=== PATIENT | female | born 1945 | race Caucasian/White ===

== ENCOUNTER 2019-10-04 14:21 | Emergency (ER) | payer MEDICARE ==
[2019-10-04] MEDS ORDERED: HYDROmorphone 0.5 MG/0.5 ML SYRINGE IVP STA (14:37)
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
[2019-10-04 15:30] VITALS: RESP 18
[2019-10-04 15:36] LABS: Basophils # (A) 0.1 k/uL (0-0.2); Basophils % (A) 1 %; Eosinophils # (A) 0.1 k/uL (0-0.7); Eosinophils % (A) 1 %; HCT 45.1 % (34.0-46.0); HGB 15.1 gm/dL (11.4-16.0); Lymphocytes # (A) 1.2 k/uL (1.0-4.8); Lymphocytes % (A) 12 %; MCH 32.3 pg (25.0-35.0); MCHC 33.4 g/dL (31.0-37.0); MCV 96.6 fL (80.0-100.0); Monocytes # (A) 0.3 k/uL (0-1.0); Monocytes % (A) 4 %; Neutrophils # (A) 7.8 k/uL (1.3-7.7); Neutrophils % (A) 81 %; Platelet Count 188 k/uL (150-450); RBC 4.67 m/uL (3.80-5.40); RDW 12.5 % (11.5-15.5); WBC 9.6 k/uL (3.8-10.6)
--- NOTE | 2019-10-04 15:45 | XR ---
EXAMINATION TYPE: XR chest 1V portable DATE OF EXAM: 10/04/2019 COMPARISON: NONE HISTORY: Pain TECHNIQUE: Single frontal view of the chest is obtained. FINDINGS: There is no focal air space opacity, pleural effusion, or pneumothorax seen. The cardiac silhouette size is within normal limits. The osseous structures are intact. Atherosclerotic change aorta. No overt failure. IMPRESSION: No acute process.
[2019-10-04 15:51] LABS: ALT 15 U/L (4-34); AST 33 U/L (14-36); African American GFR (CKD) >90 (>60 ml/min/1.73 sqM); Albumin 4.1 g/dL (3.5-5.0); Alcohol <10 mg/dL; Alkaline Phosphatase 60 U/L (38-126); Anion Gap 6 mmol/L; Blood Urea Nitrogen 21 mg/dL (7-17); Calcium 9.4 mg/dL (8.4-10.2); Carbon Dioxide 27 mmol/L (22-30); Chloride 108 mmol/L (98-107); Glucose 87 mg/dL (74-99); Non-African American GFR(CKD) >90 (>60 ml/min/1.73 sqM); Sodium 141 mmol/L (137-145); Total Bilirubin 0.5 mg/dL (0.2-1.3); Total Protein 7.3 g/dL (6.3-8.2)
[2019-10-04 15:55] LABS: Potassium 4.8 mmol/L (3.5-5.1)
[2019-10-04 16:01] LABS: Amorphous Sediment,Urine Many /hpf; Appearance,Urine Turbid (Clear); Bilirubin,Urine Negative (Negative); Blood,Urine Negative (Negative); Color,Urine Yellow; Glucose,Urine (UA) Negative (Negative); Ketones,Urine Negative (Negative); Leukocyte Esterase,Urine Negative (Negative); Nitrite,Urine Negative (Negative); PH, Urine 7.5 (5.0-8.0); Protein,Urine Trace (Negative); Specific Gravity,Urine 1.018 (1.001-1.035); Squamous Epithelial Cell,Urine 3 /hpf (0-4); Urobilinogen,Urine <2.0 mg/dL (<2.0); WBC,Urine 1 /hpf (0-5)
[2019-10-04 16:02] LABS: INR 0.9 (<1.2); Prothrombin Time 9.8 sec (9.0-12.0)
[2019-10-04 16:11] LABS: Partial Thromboplastin Time 21.7 sec (22.0-30.0)
[2019-10-04 16:16] LABS: Amphetamine Screen,Urine Not Detected (NotDetected); Barbiturate Screen,Urine Not Detected (NotDetected); Benzodiazepines Screen,Urine Not Detected (NotDetected); Cocaine Screen,Urine Not Detected (NotDetected); Methadone Screen, Urine Not Detected (NotDetected); Opiate Screen,Urine Not Detected (NotDetected); Oxycodone Screen, Urine Not Detected (NotDetected); Phencyclidine Screen,Urine Not Detected (NotDetected); Tricyclic Antidepressant,Urine Not Detected (NotDetected); Urn Cannabinoid Scrn Not Detected (NotDetected)
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
[2019-10-04 17:10] VITALS: BP 185/91; PULSE 82; TEMP 97.8
== END 2019-10-04 17:29 | disposition home or self-care (01) ==
LOC: EC 14:21
DX: S20.219A Contusion of unspecified front wall of thorax, initial encounter (principal); I71.4 Abdominal aortic aneurysm, without rupture; I71.2 Thoracic aortic aneurysm, without rupture; I10 Essential (primary) hypertension; F17.200 Nicotine dependence, unspecified, uncomplicated; V89.2XXA Person injured in unspecified motor-vehicle accident, traffic, initial encounter; Y92.89 Other specified places as the place of occurrence of the external cause
CPT/HCPCS: 36415; 93005; 86900; 86901; 80053; 84484; 85025; 85610; 85730; 86850; 81001; 80306; 71045; 71260; 74177; 99284; 96374; G0480; J1170; Q9967; 80320

== ENCOUNTER → 2019-11-16 | Outpatient (CLI) | payer MEDICARE ==
--- NOTE | 2019-11-18 13:30 | MM ---
Reason for exam: screening (asymptomatic). Last mammogram was performed 13 years and 9 months ago. History: Patient is postmenopausal. Family history of premenopausal breast cancer in sister and breast cancer in relative. Benign stereotactic core biopsy of the left breast, July 01, 2002. 2 cyst aspirations of the left breast. Core biopsy of the left breast. Physical Findings: A clinical breast exam by your physician is recommended on an annual basis and results should be correlated with mammographic findings. MG 3D Screening Mammo W/Cad Bilateral CC and MLO view(s) were taken. Prior study comparison: February 06, 2006, bilateral screening mammogram w/CAD. January 21, 2005, bilateral screening mammogram. The breast tissue is heterogeneously dense. This may lower the sensitivity of mammography. Previous mammotome biopsy in the left breast. New central posterior grouped microcalcifications right breast. Adjacent nodular asymmetry on right CC may be at the skin. Three new groups of microcalcifications left posterior upper outer quadrant. ASSESSMENT: Incomplete: need additional imaging evaluation, BI-RAD 0 RECOMMENDATION: Special view mammogram of both breasts. If lesion persists on supplemental views, image directed ultrasound is recommended. [facility] will attempt to contact patient to return for supplemental views and ultrasound if indicated.
== END | disposition home or self-care (01) ==
LOC: RADMAMWWP 12:55
PROVIDERS: ATTEND Family Medicine
DX: Z12.31 Encounter for screening mammogram for malignant neoplasm of breast (principal)
CPT/HCPCS: 77063; 77067

== ENCOUNTER → 2019-12-02 | Outpatient (CLI) | payer MEDICARE ==
--- NOTE | 2019-12-02 12:29 | MM ---
Reason for exam: additional evaluation requested from abnormal screening. Last mammogram was performed 1 month ago. History: Patient is postmenopausal. Family history of premenopausal breast cancer in sister and breast cancer in relative. Benign stereotactic core biopsy of the left breast, July 01, 2002. 2 cyst aspirations of the left breast. Core biopsy of the left breast. Physical Findings: Nurse did not find any significant physical abnormalities on exam. MG 3D Work Up W/Cad DIMA Bilateral CC with magnification, LM with magnification, and LM view(s) were taken. CCRL view(s) were taken of the right breast. Prior study comparison: February 06, 2006, bilateral screening mammogram w/CAD. The breast tissue is heterogeneously dense. This may lower the sensitivity of mammography. There are new bilateral calcifications. New 1.3cm lower inner quadrant posterior depth calcifications are heterogeneous. Left 3 groups of calcifications are also heterogeneous. The first is 6mm in the central outer left breast at middle depth, the second is a 5mm upper outer quadrant middle depth on the left, the third is 4mm upper outer quadrant. Right medial posterior depth asymmetry corresponds to a mole. These results were verbally communicated with the patient and result sheet given to the patient on 12/02/19. ASSESSMENT: Suspicious, BI-RAD 4 RECOMMENDATION: Stereotactic core biopsy of both breasts. Most suspicious groups bilaterally (2 sites) Called Dr. Skinner's office with mammographic findings and has scheduled an appointment for the patient for 01/27/20 at 11:[address] Calderón. Biopsy scheduled for 02/02/20 at 8:00. PRELIMINARY REPORT CALLED AND FAXED TO DR. CALDERÓN ON 12/02/19.
== END | disposition home or self-care (01) ==
LOC: RADMAMWWP 10:34
PROVIDERS: ATTEND Family Medicine
DX: R92.8 Other abnormal and inconclusive findings on diagnostic imaging of breast (principal)
CPT/HCPCS: 77066; G0279; 77062

== ENCOUNTER → 2020-01-27 | Outpatient (CLI) | payer MEDICARE ==
[2020-01-27 11:37] VITALS: BP 116/78; PULSE 65; RESP 16; TEMP 98
--- NOTE | 2020-01-27 11:58 | P.GSHP ---
History of Present Illness H&P Date: 01/27/20 Chief Complaint: abnormal mammogram of the breast bilateral The patient is a 74-year-old white female seen in consultation for Dr. Skinner, she had a bilateral mammogram performed on . Her last mammogram prior to this was approximately 2005. She was noted to have bilateral calcifications. There are 3 groups in the left breast and one group in the right breast which are particularly suspicious. The radiographs were reviewed with Dr. Garcia from radiology. He is recommended that the right breast stereotactic core.by to be done initially with the cc from below approach. He was then recommended that 2 areas at least be sampled on the left with a lateral to medial approach. She does not complain of any lumps masses or nodules in her breasts. She is not complaining of any nipple discharge or skin changes. She is not complaining of any trauma or infection in her breast. She had a left breast biopsy for down in 2005 and this was not cancer. It was done in about 2005 and was benign. She drinks abut 2/3 cups of coffee/day. She drinks pop with caffeine also. She used to smoke approximately half a pack per day of cigarettes but stopped in November. She smoked for about 50 years. She is not exposed to second hand smoke. She does not eat chocolate on a regular basis. She does not take any hormone supplements. Family history: sister: breast and bone cancer at about 40 mother: rectal cancer brother: bone cancer Hormonal history: menarche: 10 M1, breast fed: yes, age at first : 17 menopause: 48 BCP: <1 year hormones: < 2 years Surgical History: 1. left wrist/carpal tunnel 2. eyes bilateral cataract Medical History: 1. HTN 2. high cholesterol Social History: smoke: stopped in November alcohol: none drugs: none - Constitutional Constitutional: Denies chills, Denies fever - EENT Eyes: bilateral blurred vision (macular degenertion), denies pain Ears: deny: decreased hearing, tinnitus Ears, nose, mouth and throat: Denies headache, Denies sore throat - Breasts Breasts: bilateral: as per HPI - Cardiovascular Cardiovascular: Reports high blood pressure - Respiratory Respiratory: Denies cough, Denies 7 - Gastrointestinal Gastrointestinal: Denies abdominal pain, Denies diarrhea, Denies nausea, Denies vomiting - Genitourinary (Female) Genitourinary: Denies dysuria, Denies hematuria - Menstruation Menstruation: Reports postmenopausal - Musculoskeletal Comment: arthritis - Integumentary Integumentary: Denies pruritus, Denies rash - Neurological Neurological: Reports numbness, Denies weakness - Psychiatric Psychiatric: Denies anxiety, Denies depression - Endocrine Endocrine: Reports weight change, Denies fatigue - Hematologic/Lymphatic Comment: none - Allergic/Immunologic Allergic/Immunologic: Reports as per HPI Past Medical History Past Medical History: No Reported History History of Any Multi-Drug Resistant Organisms: None Reported Past Surgical History: No Surgical Hx Reported Smoking Status: Former smoker Medications and Allergies Home Medications Medication Instructions Recorded Confirmed Type amLODIPine [Norvasc] 5 mg PO DAILY #30 tab 10/04/19 01/25/20 Rx Allergies Allergy/AdvReac Type Severity Reaction Status Date / Time No Known Allergies Allergy Verified 01/27/20 11:22 Surgical - Exam BMI 24.2 - General well developed, well nourished, no distress - Eyes normal ocular movement - ENT no hearing loss, no congestion - Neck no masses, trachea midline - Respiratory normal expansion, normal respiratory effort, clear to auscultation - Cardiovascular Rhythm: regular Heart Sounds: normal: S1, S2 - Abdomen Abdomen: soft, non tender, no guarding, no rigid, no rebound - Integumentary normal turgor - Neurologic no disoriented, no combative - Musculoskeletal normal gait, normal posture - Psychiatric oriented to time, oriented to person, oriented to place, speech is normal, memory intact breast exam: BRA 44B inspection: bilateral grade 3 ptosis Palpation: Right breast: Multi-positional exam fibrocystic changes no dominant masses or nodules of concern Right axilla: No adenopathy of concern Left breast: Multi-positional exam fibrocystic changes, increased fullness minimal lower inner quadrant area no dominant discrete mass Left axilla: No adenopathy of concern No supraclavicular adenopathy of concern on either side Results Mammograms reviewed with Dr. Myers from radiology Assessment and Plan Assessment: Impression: 1. Abnormal bilateral mammogram/3 sites in the left breast, one site in the right breast 2. Fibrocystic breast changes 3. Hypertension Plan: 1. Bilateral stereotactic core biopsy. Recommend biopsy of right breast initially this would be a CC from below approach, 3 lesions on the left to more suspicious and these would be a lateral to medial approach on the left. This and benefits of the procedure discussed with the patient and her son. Alternatives which would be watchful waiting versus open biopsy in the operating room I discussed but not recommended. She wishes to have this scheduled for the near future this will be scheduled. This concluded but are not limited to bleeding, infection, inability to access the correct lesion. She understands and wishes to proceed. Additional risk in this covid-19 time would be exposure to the virus however all precautions will be taken she understands and wishes to proceed. CC: Charlene Juares encounter 45 minutes, > 50% of time in planning and counselling Time with Patient: Greater than 30
== END | disposition home or self-care (01) ==
LOC: WWCWWP 10:57
PROVIDERS: ATTEND Surgery
DX: Z53.9 Procedure and treatment not carried out, unspecified reason (principal)

== ENCOUNTER → 2020-01-31 | Outpatient (CLI) | payer MEDICARE | END | disposition home or self-care (01) | LOC: LABWHC1 13:14 | PROVIDERS: ATTEND Surgery | DX: Z11.59 Encounter for screening for other viral diseases (principal) | CPT/HCPCS: 87635 ==

== ENCOUNTER → 2020-02-02 | Day surgery (SDC) | payer MEDICARE ==
[2020-02-02 07:23] VITALS: RESP 16; TEMP 98.2
--- NOTE | 2020-02-02 10:16 | P.PCN ---
Date of Procedure: 02/02/20 Preoperative Diagnosis: Bilateral mammographic abnormalities/1 lesion right breast, 3 lesions left breast Postoperative Diagnosis: Same Procedure(s) Performed: Attempted right breast stereotactic core biopsy canceled secondary to lesion being in close proximity to vessel, lung lesion sampled left breast Anesthesia: local Surgeon: Seema Calderón IV fluids (ml): 1 Pathology: other (Breast tissue) Condition: stable Disposition: same day Indications for Procedure: Mammographic abnormality of microcalcifications left breast Operative Findings: Microcalcifications from left breast biopsy noted in the biopsy specimen Description of Procedure: Xi is a 74-year-old white female who on a routine mammogram was noted to have an area of microcalcifications of concern in the right breast, and 3 areas in the left breast. The patient was recommended to undergo biopsy of the area in the right breast as well as the most suspicious area in the left breast and possibly the other 3 areas. The right breast was approached initially. The risks and benefits of the procedure were discussed with the patient as well as the alternatives. Alternatives would include watchful waiting (biopsy in the operating room. The patient agreed to go to a stereotactic core biopsy. The patient was brought to the stereotactic core biopsy wound. She was positioned prone on the biopsy table. A film was obtained of the right breast in the area of concern was identified. The patient was noted to be in proximity to a vessel. With the radiologist/Dr. Alvarado felt that the breast could not be approached in another fashion and this lesion could not be safely sampled via stereotactic biopsy. Therefore needle localization and excision in the operating room was recommended for the right breast. The left breast was then approached. The area of greatest suspicion was approached from a lateral to medial approach however the lesion could not be well seen in the CC from below approach was ultimately utilized. The area of concern was targeted. The skin was prepped using Betadine. 15 mL of 1% lidocaine 5 of which had epinephrine were utilized. A 19-gauge vacuum-assisted core rotating biopsy needle was driven to the correct coordinates and fired. Post-fire films revealed that the needle was not in the correct location and the needle was moved to a more negative exposition. Again a repeat radiograph revealed that the needle was not in the correct location. Therefore the needle was withdrawn and the lesion was retargeted. At this time 20 mL of 1% lidocaine 10 of which had epinephrine was utilized for the localization. The breast was again prepped using Betadine. The needle was driven to the correct coordinates after the lesion was targeted and post-fire films were obtained. The needle appeared to be in the correct location. 13 core biopsy samples were obtained. Radiograph of the specimen revealed that the microcalcifications had been adequately sampled. A circular jessie top Marker was placed. The patient tolerated the procedure in stable condition. The specimen was sent for pathology. Review with the radiologist revealed that there were 3 other lesions A total of 4 lesions of concern in the left breast. Because we had already used approximately 30 mL of 1% lidocaine was felt that we could not sample second area at this time. Impression/plan: 1. Radiographic abnormality right breast not conducive to stereotactic core biopsy secondary to vasculature in the area 2. Left breast radiographic abnormality 4 lesions one which was sampled, depending on results of this further recommendation to follow 3. If this is benign would recommend stereo biopsy of the other 3 areas of concern if this is malignant and patient wishes a mastectomy would not need to sample the other areas stereotactically 4. Follow-up in 1 week CC: Dr. Joelle Skinner; Charlene Amaya
[2020-02-02 10:25] VITALS: BP 169/82; PULSE 66
--- NOTE | 2020-02-02 11:03 | MM ---
EXAMINATION TYPE: MG stereo VAD BX LT DATE OF EXAM: 02/02/2020 COMPARISON: NONE CLINICAL HISTORY: Abnormal mammogram TECHNIQUE: Stereotactic guided core biopsy of bilateral breasts. FINDINGS: Best approach was chosen for right breast. The calcifications within the right breast appear to be adjacent to vascular structures at the same level. Due to the risks involved, in discussion with the surgeon, this was deferred to open biopsy. Best approach was chosen for the left breast calcifications. Targeting was provided by radiology. The procedure was performed by surgery. Multiple core samples were obtained. Calcifications are grouped within a sample. Clip was placed and postprocedure mammogram was obtained. The patient is been resected clip is in the expected region. Case was discussed with the referring surgeon. The biopsy results will be evaluated. Additional stereotactic core samples of the 3 sites within this left breast can be performed. Right breast open biopsy is currently awaiting pathology results of the left breast findings. IMPRESSION: 1. Successful core biopsy left breast calcifications. 2. Stereotactic core biopsy not performed on the right breast due to vasculature. This will be rescheduled for open biopsy. Recommendations: 1. Pathology pending. 2. Open biopsy right breast calcifications. 3. Decision on 3 additional groups of calcifications within the left breast for stereotactic core biopsy can be considered following initial pathology results and patient requests. Pathology Results: Benign LEFT BREAST, STEREOTACTIC CORE BIOPSY: Fibrocystic changes including fibroadenomatoid hyperplasia with calcifications, fibrosis, cysts and sclerosing adenosis. Recommendation Follow up mammogram of the left breast in 6 months. BANDARD
--- NOTE | 2020-02-02 11:04 | MM ---
EXAMINATION TYPE: MG stereo VAD BX LT DATE OF EXAM: 02/02/2020 COMPARISON: NONE CLINICAL HISTORY: Abnormal mammogram TECHNIQUE: Stereotactic guided core biopsy of bilateral breasts. FINDINGS: Best approach was chosen for right breast. The calcifications within the right breast appear to be a djacent to vascular structures at the same level. Due to the risks involved, in discussion with the s urgeon, this was deferred to open biopsy. Best approach was chosen for the left breast calcifications. Targeting was provided by radiology. The procedure was performed by surgery. Multiple core samples were obtained. Calcifications are grouped within a sample. Clip was placed and postprocedure mammogram was obtained. The patient is been resected clip is in the expected region. Case was discussed with the referring surgeon. The biopsy results will be evaluated. Additional stere otactic core samples of the 3 sites within this left breast can be performed. Right breast open biops y is currently awaiting pathology results of the left breast findings. IMPRESSION: 1. Successful core biopsy left breast calcifications. 2. Stereotactic core biopsy not performed on the right breast due to vasculature. This will be resche duled for open biopsy. Recommendations: 1. Pathology pending. 2. Open biopsy right breast calcifications. 3. Decision on 3 additional groups of calcifications within the left breast for stereotactic core bio psy can be considered following initial pathology results and patient requests.
== END ==
LOC: RADMAMWWP 07:04
PROVIDERS: ATTEND Surgery
DX: N60.12 Diffuse cystic mastopathy of left breast (principal); R92.1 Mammographic calcification found on diagnostic imaging of breast; N60.22 Fibroadenosis of left breast; R92.8 Other abnormal and inconclusive findings on diagnostic imaging of breast; Z53.8 Procedure and treatment not carried out for other reasons
CPT/HCPCS: 19082; 88305; 19081; A4648; J2001

== ENCOUNTER → 2020-02-09 | Outpatient (CLI) | payer MEDICARE ==
[2020-02-09 13:46] VITALS: BP 121/76; PULSE 48; RESP 16; TEMP 98.2
--- NOTE | 2020-02-09 14:09 | P.PN ---
Subjective Progress Note Date: 02/09/20 Principal diagnosis: Stereotactic biopsy left breast results Xi is a 74-year-old white female status post [place] [id number]. Pathology was benign and calcifications were present in the specimen. An attempt at a right breast stereo biopsy was made on the same day and this was canceled secondary to vascularity of the area of the lesion. Today in review of her films with Dr. Kang from radiology is felt that the sampling on the left is product representative of the other calcifications. Therefore the option of a six-month bilateral mammogram is given to the patient. We discussed that I cannot tell her with certainty what the other areas are however at this time she wishes to wait and have repeat bilateral mammogram in 6 months. He and her son understand that if there is any change that would be recommending biopsy in 6 months. The patient tolerated the procedure with no difficulty. Objective - Vital Signs Vital signs: Vital Signs Temp 98.2 F 02/09/20 13:35 Pulse 48 L 02/09/20 13:35 Resp 16 02/09/20 13:35 BP 121/76 02/09/20 13:35 Pulse Ox 98 02/09/20 13:35 Intake & Output 02/08/20 02/09/20 02/09/20 18:59 06:59 18:59 Weight 63.049 kg - Exam BMI 24.6 - Constitutional General appearance: Present: average body habitus - EENT Eyes: Present: EOMI ENT: Present: hearing grossly normal - Neck Neck: Present: normal ROM - Respiratory Respiratory: bilateral: CTA - Cardiovascular Rhythm: regular Heart sounds: normal: S1, S2 - Integumentary Integumentary Comment(s): left bresat mild echymosis at biopsy site, no hematoma no infection Integumentary: Present: normal turgor - Musculoskeletal Musculoskeletal: Present: gait normal - Psychiatric Psychiatric: Present: A&O x's 3, appropriate affect, intact judgment & insight Assessment and Plan Assessment: Impression/Plan: 1. Left breast biopsy site clean and dry mild ecchymosis 2. Pathology from core biopsy benign 3. Additional sites in the left breast as well as the right breast site appeared to be similar to that area which was biopsied, this is been reviewed with Dr. Kang and the patient is given the option of following up in 6 months versus open biopsy of the right breast and additional biopsies of the areas in the left breast The patient wishes to wait for 6 months. She understands that we may recommend biopsy at that time. She understands I cannot guarantee that there is no cancer without further biopsy or intervention however the areas appear to be similar to that which was probed biopsied and benign. CC: DR. Brody Amaya PA encounter 15 minutes > 50% of time in planning and counselling Time with Patient: Less than 30
== END | disposition home or self-care (01) ==
LOC: WWCWWP 13:26
PROVIDERS: ATTEND Surgery
DX: Z53.9 Procedure and treatment not carried out, unspecified reason (principal)

== ENCOUNTER → 2020-04-20 | Outpatient (CLI) | payer MEDICARE ==
[2020-04-20 13:04] LABS: African American GFR (CKD) >90 (>60 ml/min/1.73 sqM); Blood Urea Nitrogen 14 mg/dL (7-17); Non-African American GFR(CKD) >90 (>60 ml/min/1.73 sqM)
--- NOTE | 2020-04-20 14:21 | CT ---
EXAMINATION TYPE: CT angio thor/abd pel aorta DATE OF EXAM: 04/20/2020 COMPARISON: CT April 03, 2020 HISTORY: AAA with thoracic pain. CT DLP: 605 mGycm. Automated Exposure Control for Dose Reduction was Utilized. CONTRAST: CTA scan of the thorax, abdomen and pelvis is performed with IV Contrast, patient injected with 100 m L of Isovue 370. Three-D reconstructed images are created on an independent workstation and reviewed. FINDINGS: VASCULAR: Satisfactory enhancement of the pulmonary arteries. Stable prominent right and left pulmona ry arteries. Findings suggestive of underlying pulmonary artery hypertension. Ascending aorta measures up to 3.7 cm in diameter image 25. Normal 3 vessel origin from the aortic ar ch. Moderate mixed plaque in the aortic arch. Redemonstration of focal aneurysm of the distal thoracic aorta measuring up to 4.5 cm axial image 42 with some curvilinear noncalcified plaque anteriorly redemonstrated. There is patent celiac artery, SMA, and bilateral single renal arteries. There is gradual tapering in to the upper abdominal aorta. There is then some ectasia of the infrarenal abdominal aorta with AAA m easuring 4.2 x 3.9 cm axially image 71. Significant peripheral noncalcified plaque or intramural thro mbus redemonstrated. Aneurysmal extends the level of the iliac bifurcation measuring roughly 8 cm in length. Mild to moderate calcified plaque in the iliac vessels which are patent. Slightly more prominent plaq ue in the right internal iliac artery which shows significant narrowing. Femoral vessels in the right groin show mild to moderate plaque without significant stenosis. PREET is likely occluded. LUNGS: Background mild to moderate underlying emphysematous change There is no pleural effusion or pn eumothorax seen bilaterally. No concerning nodules or masses. The tracheobronchial tree is patent. MEDIASTINUM: There are no greater than 1 cm hilar or mediastinal lymph nodes. No cardiomegaly or pe ricardial effusion is seen. Coronary artery calcification is redemonstrated. LIVER/GB: Dependent intraluminal gallstone redemonstrated. PANCREAS: No significant abnormality is seen. SPLEEN: No significant abnormality is seen. ADRENALS: No significant abnormality is seen. KIDNEYS: Occasional simple appearing thin-walled cysts in both kidneys are redemonstrated. BOWEL: Scattered colonic diverticula greatest at level of sigmoid colon without CT evidence for acute diverticulitis . GENITAL ORGANS: Anteverted lobulated uterus extending to left of midline similar to prior. LYMPH NODES: No greater than 1cm abdominal or pelvic lymph nodes are appreciated. OSSEOUS STRUCTURES: Moderate disc space narrowing and spurring L2-L3 level. Moderate axial joint spac e loss in both hips. OTHER: No significant additional abnormality is seen. IMPRESSION: Stable distal descending thoracic aortic aneurysm which I measure up to 4.5 cm in diamete r and 4.7 cm abdominal aortic aneurysm over roughly 8 cm in length.
== END | disposition home or self-care (01) ==
LOC: RADCTMAIN 12:24
PROVIDERS: ATTEND Surgery
DX: I71.4 Abdominal aortic aneurysm, without rupture (principal); I71.2 Thoracic aortic aneurysm, without rupture
CPT/HCPCS: 82565; 84520; 71275; 36415; 74174; Q9967

== ENCOUNTER → 2020-08-06 | Outpatient (CLI) | payer MEDICARE ==
--- NOTE | 2020-08-06 11:07 | MM ---
Reason for exam: follow-up at short interval from prior study. Last mammogram was performed 8 months ago. History: Patient is postmenopausal. Family history of premenopausal breast cancer in sister at age 40 and breast cancer in maternal aunt. Benign MG stereo VAD BX LT of the left breast, February 02, 2020. MG discontinued stereo core RT of the right breast, February 02, 2020. Benign stereotactic core biopsy of the left breast, July 01, 2002. 2 cyst aspirations of the left breast. Core biopsy of the left breast. Physical Findings: A clinical breast exam by your physician is recommended on an annual basis and results should be correlated with mammographic findings. MG 3D Diag Mammo W/Cad DIMA Bilateral CC and MLO view(s) were taken. Prior study comparison: December 02, 2019, bilateral MG 3d work up w/cad DIMA. November 16, 2019, bilateral MG 3d screening mammo w/cad. There are scattered fibroglandular densities. Finding: There are grouped/clustered calcifications in both breasts. Previous mammotome biopsy in the left breast x 2. No significant changes in finding since December 02, 2019 and November 16, 2019. These results were verbally communicated with the patient and result sheet given to the patient on 08/06/20. ASSESSMENT: Benign, BI-RAD 2 RECOMMENDATION: Routine screening mammogram of both breasts in 1 year.
== END | disposition home or self-care (01) ==
LOC: RADMAMWWP 08:37
PROVIDERS: ATTEND Surgery
DX: R92.8 Other abnormal and inconclusive findings on diagnostic imaging of breast (principal)
CPT/HCPCS: 77066; G0279; 77062

== ENCOUNTER → 2020-10-26 | Outpatient (CLI) | payer MEDICARE ==
[2020-10-26 08:54] LABS: African American GFR (CKD) >90 (>60 ml/min/1.73 sqM); Blood Urea Nitrogen 18 mg/dL (7-17); Non-African American GFR(CKD) 89 (>60 ml/min/1.73 sqM)
--- NOTE | 2020-10-26 15:56 | CT ---
EXAMINATION TYPE: CT angio thor/abd pel aorta DATE OF EXAM: 10/26/2020 INDICATION: Abdominal aortic aneurysm COMPARISON: 04/20/2020 CT DLP: 752 mGycm CONTRAST: Performed without Oral Contrast and with IV Contrast, patient injected with 100 mL of Isovue 370. TECHNIQUE: Axial images at 5 mm thick sections. Reconstructed images in the coronal plane. Delayed images through the kidneys. FINDINGS: CT CHEST: Portion of the thyroid visualized is normal. There is a hypodensity within the inferior left lobe thyroid. Subglottic airway appears normal. Note is made of a 1.0 cm left axillary lymph node. No enlarged mediastinal or hilar adenopathy is srinivasa dent. The ascending aorta diameter at the level of the main pulmonary artery is 2.7 cm. The main pulmonary artery diameter at the bifurcation is 2.[address] ABDOMEN: Liver: Normal Spleen: Normal Pancreas: Normal Adrenal glands: The adrenal glands are normal. Gallbladder: Gallstone is present Kidneys: No masses are evident. No hydronephrosis is present. No cysts are present. Delayed images were obtained through the kidneys, which remain unremarkable. Aorta: Vascular calcification is within the aorta. Ascending thoracic aorta at the aortic root measures 3.2 cm. The aorta at the main pulmonary artery i s 3.7 cm. The aorta at the aortic arch transverse dimension 2.8 cm There is some aneurysmal dilatation of the descending thoracic aorta within the mid to distal portion with the transverse dimension of 4.5 cm. This measures approximately 3.0 cm the global diaphragm. Ce liac axis and superior mesenteric arteries appear normal. 2 renal arteries are identified. There is aneurysmal dilatation of the mid abdominal aorta with an AP diameter 4.1 cm. Flow lumen is s maller. This terminates bifurcation. Common iliac arteries internal and external iliac arteries and c ommon femoral arteries are patent to the inguinal regions. Inferior vena cava: Normal. CT PELVIS: Loops of bowel within the abdomen and pelvis are normal. The study is done without oral contrast limiting bowel evaluation. Diverticular changes are within the sigmoid colon. Appendix: Not visualized. No suspicious inflammatory changes or enlarged tubular structures are evide nt Urinary bladder: Normal. Genitourinary structures: Uterus is normal. Adnexal regions are clear. Osseous structures: No suspicious lytic or sclerotic lesions. IMPRESSIONS: 1. Aneurysmal dilatation of the mid abdominal aorta terminating at the bifurcation with an AP diamete r 4.1 cm. 2. Aneurysmal dilatation of the distal descending thoracic aorta with a transverse dimension of 4.5 c m. 3. Dilatation of the ascending thoracic aorta at the level the main pulmonary artery is 3.7 cm. 4. Cholelithiasis. 5. Diverticulosis without acute diverticulitis.
== END | disposition home or self-care (01) ==
LOC: RADCTMAIN 08:13
PROVIDERS: ATTEND Surgery
DX: K80.20 Calculus of gallbladder without cholecystitis without obstruction (principal); I71.2 Thoracic aortic aneurysm, without rupture; K57.90 Diverticulosis of intestine, part unspecified, without perforation or abscess without bleeding
CPT/HCPCS: 82565; 84520; 71275; 36415; 74174; Q9967

== ENCOUNTER → 2021-04-30 | Outpatient (CLI) | payer MEDICARE ==
[2021-04-30 11:25] LABS: African American GFR (CKD) >90 (>60 ml/min/1.73 sqM); Blood Urea Nitrogen 13 mg/dL (7-17); Non-African American GFR(CKD) 89 (>60 ml/min/1.73 sqM)
--- NOTE | 2021-04-30 13:35 | CT ---
EXAMINATION TYPE: CT angio thor/abd pel aorta DATE OF EXAM: 04/30/2021 COMPARISON: 10/26/2020 HISTORY: 76-year-old female I71.2, thoracic aortic aneurysm without rupture. TECHNIQUE: Contiguous axial scanning of the chest, abdomen, and pelvis performed with IV Contrast, pa tient injected with 100 mL of Isovue 370. Coronal/sagittal MIP reconstructions performed. 3-D reconst ructions generated on a dedicated independent workstation. CT DLP: 1385 mGycm Automated exposure control for dose reduction was used. FINDINGS: CHEST: 7 mm hypodense nodularity left adrenal gland is unchanged. Heart normal size without pericardial effusion. Mild proximal LAD coronary artery calcifications are present. Borderline to mildly enlarged caliber to the main right and left pulmonary arteries measurin g up to 2.5 cm. This may reflect underlying pulmonary hypertension. 9 mm left axillary lymph node is unchanged. No new or enlarging mediastinal or hilar lymphadenopathy. Strandy areas of atelectasis. Mild centrilobular emphysema. Calcified granuloma anterior right mid bart ng. No consolidation or pleural effusion. VASCULATURE: Aortic root borderline ectatic at 3.5 mm, unchanged. Ascending aorta is borderline ectatic at 3.5 cm, unchanged. Mild atherosclerotic arch calcifications with conventional branching anatomy. Upper descending thoracic aorta mildly ectatic at 3.2 cm, unchanged. Middescending thoracic aorta is mildly aneurysmal at 3.0 cm, unchanged. Fusiform aneurysm distal descending thoracic aorta measuring up to 4.5 cm, unchanged. Crescentic mura l based plaque and thrombus is present. The aorta at the thoracoabdominal junction is aneurysmal at 3.3 cm, unchanged. Mild atherosclerotic narrowing at the origin of the celiac axis. The SMA is patent. Patent escobedo renal arteries. Fusiform infrarenal AAA extending approximately 7.6 cm down to the aortic bifurcation. Aneurysm measures up to 4.8 x 4.3 cm versus 4.6 x 4.2 cm, previously. Crescentic in circumferential plaque and thrombus narrows the lumen down to 2.1 cm. Mild atherosclerotic calcifications within the iliac arteries. ABDOMEN: Small hiatal hernia. Stable 1.2 cm cyst segment 2 left liver lobe. Gallstones measuring up to 1.9 cm redemonstrated. No abnormal gallbladder distention. No biliary duct al dilatation. Adrenal glands and pancreas show no gross abnormal body. A couple calcified granulomas within the spl een Suspect a cortical cyst anterior lower pole left kidney measuring 8 mm. Larger 2.0 cm cyst medial rig ht kidney. No dilated small bowel, free fluid, or free air. No mesenteric or retroperitoneal lymphadenopathy. Normal appendix. Mild stool burden. Sigmoid diverticulosis. No pericolonic inflammatory change. PELVIS: Bladder nondistended. Lobulated, anteverted uterus, suspect underlying fibroid change. Pelvic phlebol iths. Bladder nondistended. No abnormal fluid collection in the pelvis or pelvic lymphadenopathy. Mil d pelvic floor relaxation. BONES: Mild degenerative change of the hips. Hypertrophic facet arthropathy mid to lower lumbar spine. Moder ate to advanced degenerative disc disease L2-L3. There is a reverse S-shaped curvature along the uppe r to mid thoracic spine. IMPRESSION: 1. STABLE ECTASIA OF THE THORACIC AORTA WITH FUSIFORM ANEURYSM OF THE DISTAL DESCENDING THORACIC AORT A AT 4.5 CM, ALSO STABLE. 2. ABDOMINAL AORTIC ANEURYSM AT THE THORACOABDOMINAL JUNCTION STABLE AT 3.3 CM. 3. FUSIFORM INFRARENAL AAA SPANNING 7.6 CM MINIMALLY LARGER AT 4.8 X 4.3 CM (VERSUS 4.6 X 4.2 CM, PRE VIOUSLY). CIRCUMFERENTIAL PLAQUE AND THROMBUS NARROWS THE LUMEN HERE DOWN TO 2.1 CM. 4. INCIDENTAL: COPD WITH MILD EMPHYSEMA, PRIOR GRANULOMATOUS DISEASE, SMALL HIATAL HERNIA, CHOLELITH IASIS, AND SIGMOID DIVERTICULOSIS.
== END | disposition home or self-care (01) ==
LOC: RADCTMAIN 10:47
PROVIDERS: ATTEND Surgery
DX: I71.6 Thoracoabdominal aortic aneurysm, without rupture (principal); J43.9 Emphysema, unspecified; J84.10 Pulmonary fibrosis, unspecified; K44.9 Diaphragmatic hernia without obstruction or gangrene; K80.20 Calculus of gallbladder without cholecystitis without obstruction; K57.30 Diverticulosis of large intestine without perforation or abscess without bleeding
CPT/HCPCS: 82565; 84520; 71275; 36415; 74174; Q9967

== ENCOUNTER → 2021-08-07 | Outpatient (CLI) | payer MEDICARE ==
--- NOTE | 2021-08-12 11:01 | MM ---
Reason for exam: screening (asymptomatic). Last mammogram was performed 1 year ago. History: Patient is postmenopausal. Family history of premenopausal breast cancer in sister at age 40 and breast cancer in maternal aunt. Benign MG stereo VAD BX LT of the left breast, February 02, 2020. MG discontinued stereo core RT of the right breast, February 02, 2020. Benign stereotactic core biopsy of the left breast, July 01, 2002. 2 cyst aspirations of the left breast. Core biopsy of the left breast. Physical Findings: A clinical breast exam by your physician is recommended on an annual basis and results should be correlated with mammographic findings. MG 3D Screening Mammo W/Cad Bilateral CC and MLO view(s) were taken. Prior study comparison: August 06, 2020, bilateral MG 3d diag mammo w/cad DIMA. December 02, 2019, bilateral MG 3d work up w/cad DIMA. The breast tissue is heterogeneously dense. This may lower the sensitivity of mammography. Previous mammotome biopsy in the left breast x 2. Mole inferior right breast. Stable grouped calcifications bilaterally. No significant changes when compared with prior studies. ASSESSMENT: Benign, BI-RAD 2 RECOMMENDATION: Routine screening mammogram of both breasts in 1 year.
== END | disposition home or self-care (01) ==
LOC: RADMAMWWP 09:50
PROVIDERS: ATTEND Family Medicine
DX: Z12.31 Encounter for screening mammogram for malignant neoplasm of breast (principal); Z80.3 Family history of malignant neoplasm of breast; Z78.0 Asymptomatic menopausal state
CPT/HCPCS: 77063; 77067

== ENCOUNTER → 2021-11-04 | Outpatient (CLI) | payer MEDICARE ==
[2021-11-04 13:23] LABS: African American GFR (CKD) >90 (>60 ml/min/1.73 sqM); Blood Urea Nitrogen 24 mg/dL (7-17); Non-African American GFR(CKD) 79 (>60 ml/min/1.73 sqM)
--- NOTE | 2021-11-04 20:22 | CT ---
EXAMINATION TYPE: CT angio thor/abd pel aorta DATE OF EXAM: 11/04/2021 INDICATION: Aneurysm. CT DLP: 2123 mGy.cm Automated Exposure Control for Dose Reduction was Utilized. TECHNIQUE AND CONTRAST: CT scan of the chest, abdomen and the pelvis is performed without and with IV Contrast, patient injec barb with 100 mL of Isovue 370. MIP and 3-D reconstruction images were performed. COMPARISON: CT dated 04/30/2021 FINDINGS: Scattered arterial atherosclerotic calcification. Slightly larger fusiform aneurysm at the inferior a spect of the descending thoracic aorta measuring 4.7 cm compared to 4.5 cm previously. Stable periphe ral atheromatous plaque without evidence of dissection. Slightly larger infrarenal abdominal aortic aneurysm measuring up to 5 cm compared to 4.8 cm previous ly. Persistent atheromatous plaque within the aortic aneurysm with patent lumen measuring 22 mm, stab le. No extension of the aneurysm into the common iliac arteries. Severe stenosis of the origin of the celiac trunk yet patent distally. Unchanged remainder of the tho racic and abdominal aorta without evidence of new aneurysmal dilatation or dissection. Coronary arter ial atherosclerotic calcifications. Dilated pulmonary artery measuring up to 3 cm which may suggest p ulmonary hypertension. No gross cardiomegaly. Mild centrilobular emphysematous changes mainly seen in the upper lung lobes. Stable tiny calcified granuloma in the middle lobe. No new or progressive lung lesion. No pleural or pericardial effusion. No progressive lymphadenopathy in the chest. Unchanged liver, spleen, pancreas, adrenals and kidneys. Cholelithiasis without evidence of acute cho lecystitis. The urinary bladder is not distended. Lobular outline of the uterus, possibly due to unde rlying fibroids. Left ovarian/adnexal cyst measuring 16mm, stable. No gross right adnexal mass. Unremarkable nondistended stomach, duodenum and small bowel. Extensive colonic diverticulosis most ev ident involving the sigmoid colon and the inferior aspect of the descending colon. No suspicious abdo aydee or pelvic lymphadenopathy or sizable ascites. Persistent degenerative changes at L2-3 level. No aggressive bone lesion. IMPRESSION: Slightly larger fusiform aneurysm at the inferior aspect of the descending thoracic aorta as well as the infrarenal abdominal aortic aneurysm as detailed above. No evidence of aortic dissection or peria ortic hematoma. Other interval changes and incidental findings as described above.
== END | disposition home or self-care (01) ==
LOC: RADCTMAIN 12:20
PROVIDERS: ATTEND Surgery
DX: I71.4 Abdominal aortic aneurysm, without rupture (principal); I71.2 Thoracic aortic aneurysm, without rupture; K57.30 Diverticulosis of large intestine without perforation or abscess without bleeding; I25.10 Atherosclerotic heart disease of native coronary artery without angina pectoris; J43.2 Centrilobular emphysema; J84.10 Pulmonary fibrosis, unspecified; K80.20 Calculus of gallbladder without cholecystitis without obstruction; N83.202 Unspecified ovarian cyst, left side
CPT/HCPCS: 82565; 84520; 71275; 36415; 74174; Q9967

== ENCOUNTER → 2022-05-20 | Outpatient (CLI) | payer MEDICARE ==
[2022-05-20 11:29] LABS: African American GFR (CKD) >90 (>60 ml/min/1.73 sqM); Blood Urea Nitrogen 13 mg/dL (7-17); Non-African American GFR(CKD) 86 (>60 ml/min/1.73 sqM)
--- NOTE | 2022-05-23 09:56 | CT ---
EXAMINATION TYPE: CT angio thor/abd pel aorta DATE OF EXAM: 05/21/2022 COMPARISON: 11/04/2021 HISTORY: Abdominal aortic aneurysm CONTRAST: CTA thoracic and abdominal aorta with 3-D reconstruction is performed without Oral Contrast and witho ut and with IV Contrast, patient injected with 100 mL of Isovue 300. Contrast CTA of the thoracic and abdominal aorta was performed from the lung apex through the base of the pelvis. 3-D reconstruction imaging obtained at a separate workstation. CT Chest: THORACIC AORTA: Ascending thoracic aorta measures approximately 3.8 cm in AP dimension. Proximal desc ending thoracic aorta measures 3.1 cm. The distal portion of the descending thoracic aorta is again n oted to be aneurysmal and measures 5.3 cm AP dimension versus 5.3 cm previously. Mural thrombus is no barb. LUNGS: The lungs are clear and free of infiltrate or atelectasis. No pulmonary nodule or mass is det ected. No pleural effusion or CT evidence of interstitial lung disease. MEDIASTINUM: The heart is not enlarged. No evidence for mediastinal mass or adenopathy. HILAR STRUCTURES: No evidence for mass. No hilar adenopathy is appreciated. OTHER: No significant abnormality. CONTRAST CT ABDOMEN AND PELVIS ABDOMINAL AORTA: Mid abdominal aortic aneurysm at the level of the renal arteries measuring 3.3 cm. D istal abdominal aortic aneurysm measuring 4.7 cm AP dimension by 7.7 cm in length. Patent lumen measu res 2.2 cm. Iliac vessels are ectatic however nonaneurysmal. LIVER/GB-there is evidence of cholelithiasis. PANCREAS- No significant abnormality is seen. SPLEEN- No significant abnormality is seen. ADRENALS- No significant abnormality is seen. KIDNEYS/BLADDER- No significant abnormality is seen. BOWEL- No Significant abnormality GENITAL ORGANS: Left ovarian focal calcification in the hypoattenuating lesion measuring 2.3 cm. Cons ider ultrasound correlation. Uterine focal calcification may reflect calcified leiomyoma. No evidence for right adnexal mass. LYMPH NODES- No greater than 1cm abdominal or pelvic lymph nodes areappreciated. OSSEOUS STRUCTURES- No significant abnormality is seen. OTHER- No significant abnormality is seen. IMPRESSION- 1. Thoracic and abdominal aortic aneurysms as discussed. 2. Consider ultrasound for left ovarian lesion.
== END | disposition home or self-care (01) ==
LOC: RADCTMAIN 10:40
PROVIDERS: ATTEND Surgery
DX: I71.4 Abdominal aortic aneurysm, without rupture (principal)
CPT/HCPCS: 36415; 71275; 74174; 82565; 84520

== ENCOUNTER → 2022-08-26 | Outpatient (CLI) | payer MEDICARE ==
--- NOTE | 2022-08-27 12:03 | MM ---
Reason for Exam: Screening (asymptomatic). Last mammogram was performed 1 year(s) and 1 month(s) ago. Patient History: Menarche at age 10. First Full-Term at age 17. Postmenopausal. Cyst Aspiration on the Left side. Cyst Aspiration on the Left side. Core Biopsy on the Left side. 02/02/2020, Benign Core Biopsy on the left side. 07/01/2002, Benign Stereotactic Core Biopsy on the left side. 02/02/2020, MG discontinued stereo core RT on the right side. Maternal aunt had breast cancer. Sister had breast cancer, age 40. Risk Values: Adrienne 5 year model risk: 4.7%. NCI Lifetime model risk: 7.7%. Prior Study Comparison: 12/02/2019 Bilateral Diagnostic Mammogram, [facility]. 08/06/2020 Bilateral Diagnostic Mammogram, [facility]. 08/07/2021 Bilateral Screening Mammogram, [facility]. Tissue Density: The breast tissue is heterogeneously dense. This may lower the sensitivity of mammography. Findings: Analyzed By CAD. There are scattered and loosely grouped benign-appearing round calcifications redemonstrated throughout the bilateral breasts. There are 2 biopsy clips in the left breast redemonstrated. Benign-appearing bilateral axillary lymph nodes are again seen. There is no suspicious group of microcalcifications or new suspicious mass in either breast. Overall Assessment: Benign, BI-RAD 2 Management: Screening Mammogram of both breasts in 1 year. A clinical breast exam by your physician is recommended on an annual basis and results should be correlated with mammographic findings. Electronically signed and approved by: Ang Myers M.D.
== END | disposition home or self-care (01) ==
LOC: RADMAMWWP 10:43
PROVIDERS: ATTEND Family Medicine
DX: Z12.31 Encounter for screening mammogram for malignant neoplasm of breast (principal); Z78.0 Asymptomatic menopausal state; Z80.3 Family history of malignant neoplasm of breast
CPT/HCPCS: 77067

== ENCOUNTER → 2022-12-03 | Outpatient (CLI) | payer MEDICARE ==
[2022-12-03 11:19] LABS: African American GFR (CKD) >90 (>60 ml/min/1.73 sqM); Blood Urea Nitrogen 15 mg/dL (7-17); Non-African American GFR(CKD) 90 (>60 ml/min/1.73 sqM)
--- NOTE | 2022-12-03 13:34 | CT ---
EXAMINATION TYPE: CT angio thor/abd pel aorta DATE OF EXAM: 12/03/2022 COMPARISON: 05/20/2022 HISTORY: Follow up for thoracic and abdominal aneurysm. CT DLP: 1445 mGycm CONTRAST: CTA thoracic and abdominal aorta with 3-D reconstruction is performed and without and with IV Contras t, patient injected with 100ml mL of Isovue 370. Contrast CTA of the thoracic and abdominal aorta was performed from the lung apex through the base of the pelvis. 3-D reconstruction imaging obtained at a separate workstation. CT Chest: THORACIC AORTA: There is ectasia of the ascending thoracic aorta without aneurysmal dilatation mechelle l AP dimension of 3.8 cm. Aortic arch is unremarkable. There is a distal lead ascending thoracic aort ic aneurysm redemonstrated at 5.3m with mural thrombus. LUNGS: The lungs are clear and free of infiltrate or atelectasis. No pulmonary nodule or mass is det ected. No pleural effusion or CT evidence of interstitial lung disease. MEDIASTINUM: The heart is not enlarged. No evidence for mediastinal mass or adenopathy. HILAR STRUCTURES: No evidence for mass. No hilar adenopathy is appreciated. OTHER: No significant abnormality. CONTRAST CT ABDOMEN AND PELVIS ABDOMINAL AORTA: Again noted is infrarenal abdominal aortic aneurysm with maximal AP dimension of 4.8 cm versus 4.7 cm previously. There is no extension into the iliac vessels. Major branch vessels are patent. LIVER/GB-gallstone is redemonstrated. PANCREAS- No significant abnormality is seen. SPLEEN- No significant abnormality is seen. ADRENALS- No significant abnormality is seen. KIDNEYS/BLADDER-right renal cysts noted. BOWEL- No Significant abnormality GENITAL ORGANS: Left ovarian lesion is stable. LYMPH NODES- No greater than 1cm abdominal or pelvic lymph nodes are appreciated. OSSEOUS STRUCTURES- No significant abnormality is seen. OTHER- No significant abnormality is seen. IMPRESSION- 1. Essentially stable thoracic and abdominal aortic aneurysms.
== END | disposition home or self-care (01) ==
LOC: RADCTMAIN 09:44
PROVIDERS: ATTEND Surgery
DX: I71.40 Abdominal aortic aneurysm, without rupture, unspecified (principal); I71.20 Thoracic aortic aneurysm, without rupture, unspecified
CPT/HCPCS: 82565; 84520; 71275; 36415; 74174; Q9967

== ENCOUNTER → 2023-07-03 | Outpatient (CLI) | payer MEDICARE ==
[2023-07-03 12:53] LABS: African American GFR (CKD) >90 (>60 ml/min/1.73 sqM); Blood Urea Nitrogen 17 mg/dL (7-17); Non-African American GFR(CKD) >90 (>60 ml/min/1.73 sqM)
--- NOTE | 2023-07-03 16:41 | CT ---
EXAMINATION TYPE: CT angio thor/abd pel aorta without and with contrast DATE OF EXAM: 07/03/2023 COMPARISON: 12/03/2022 HISTORY: 78-year-old female I71.43, I71.2, f/u anuerysm TECHNIQUE: Contiguous axial scanning of the chest, abdomen, and pelvis performed without and with IV Contrast, patient injected with 100 mL of Isovue 370. Coronal/sagittal MIP reconstructions performed. 3-D reconstructions generated on a dedicated independent workstation. CT DLP: 1332.4 mGycm Automated exposure control for dose reduction was used. FINDINGS: Chest: Heart normal size without pericardial effusion. No thoracic lymph adenopathy by CT size criteria. A few calcified right hilar lymph nodes suggest seq uela of prior granulomatous disease. Large caliber to the main right and left pulmonary arteries measuring up to 2.8 cm suggesting underly ing pulmonary hypertension. There is moderate centrilobular emphysema. Unchanged 4 mm right upper lobe pulmonary nodule. Calcifie d granuloma right midlung. Strandy atelectasis or scarring as well as mild fibrosis in the lower lung s. 4 mm subpleural pulmonary nodule posterolateral left base not well seen previously. ABDOMEN: Left liver lobe cyst measuring 1.7 cm. A couple gallstones measuring 1.9 and 1.6 cm. No abnormal gall bladder distention. Adrenal glands, spleen, and pancreas show no gross abnormality. Suggestion of parapelvic cysts in the kidneys. Dominant 2.3 cm cortical cyst medial right kidney. No dilated small bowel, free fluid, or free air. No mesenteric or retroperitoneal lymphadenopathy. Normal appendix. Extensive sigmoid diverticulosis. No pericolonic inflammatory change. PELVIS: Bladder partially distended. Pelvic phleboliths. Uterus is anteverted. 1.8 cm cyst of the left ovary remains unchanged. This can be followed by ultrasound on an annual basis. Right ovary not clearly del ineated from adjacent bowel loops. No abnormal fluid collection in the pelvis or pelvic lymphadenopat hy. BONES: Advanced degenerative disc disease and endplate spondylosis L2-L3. VASCULATURE: Ascending aorta normal caliber. Upper descending thoracic aorta normal caliber. Mid descending thoracic aorta stable ectatic and 3.2 cm. Fusiform aneurysm lower descending thoracic aorta measuring 4.8 x 4.7 cm (axial image 101 and sagitta l image 50) versus 4.7 x 4.6 cm, previously. Crescentic thrombus and plaque along the anterior wall r edemonstrated. Upper abdominal aorta mildly aneurysmal at 3.3 cm, unchanged. Mid abdominal aorta mildly aneurysmal at 3.1 cm, unchanged. Focal tortuosity just below this level followed by a 8.5 cm long segment infrarenal AAA measuring up to 5.3 x 5.1 cm versus 5.1 x 4.9 cm, previously. There is nearly circumferential plaque/thrombus narr owing the patent lumen down to 2.1 cm. Mild atherosclerotic calcifications throughout the iliac vessels. IMPRESSION: 1. FUSIFORM ANEURYSM LOWER DESCENDING THORACIC AORTA MEASURING 4.8 X 4.7 CM (VERSUS 4.7 X 4.6 CM, PRE VIOUSLY). 2. UPPER ABDOMINAL AORTA MILDLY ANEURYSMAL AT 3.3 CM AND MID ABDOMINAL AORTA 3.1 CM. 3. 8.5 CM LONG INFRARENAL AAA MEASURING 5.3 X 5.1 CM (VERSUS 5.1 X 4.9 CM, PREVIOUSLY). CIRCUMFERENTI AL PLAQUE/THROMBUS NARROWS THE LUMEN DOWN TO 2.1 CM. 4. POSSIBLE UNDERLYING PULMONARY ARTERIAL HYPERTENSION. COPD WITH MODERATE EMPHYSEMA. A 4 MM LEFT LOW ER LOBE PULMONARY NODULE NOT WELL SEEN PREVIOUSLY. ATTENTION ON FOLLOW-UP. 5. CHOLELITHIASIS AND EXTENSIVE SIGMOID DIVERTICULOSIS. A 1.8 CM CYST OF THE LEFT OVARY CAN BE REASSE SSED AT ANNUAL SURVEILLANCE FOLLOW-UP ULTRASOUND.
== END | disposition home or self-care (01) ==
LOC: RADCTMAIN 12:14
PROVIDERS: ATTEND Surgery
DX: I71.40 Abdominal aortic aneurysm, without rupture, unspecified (principal); I71.23 Aneurysm of the descending thoracic aorta, without rupture; J43.9 Emphysema, unspecified; K80.20 Calculus of gallbladder without cholecystitis without obstruction; K57.30 Diverticulosis of large intestine without perforation or abscess without bleeding; N83.292 Other ovarian cyst, left side
CPT/HCPCS: 82565; 84520; 71275; 36415; 74174; Q9967

== ENCOUNTER → 2023-10-05 | Outpatient (CLI) | payer MEDICARE ==
--- NOTE | 2023-10-07 10:14 | MM ---
Reason for Exam: Screening (asymptomatic). Last mammogram was performed 1 year(s) and 1 month(s) ago. Patient History: Menarche at age 10. First Full-Term at age 17. Postmenopausal. Cyst Aspiration on the Left side. Cyst Aspiration on the Left side. Core Biopsy on the Left side. 02/02/2020, Benign Core Biopsy on the left side. 07/01/2002, Benign Stereotactic Core Biopsy on the left side. 02/02/2020, MG discontinued stereo core RT on the right side. Maternal aunt had breast cancer. Sister had breast cancer, age 40. Risk Values: Adrienne 5 year model risk: 4.6%. NCI Lifetime model risk: 7.0%. Prior Study Comparison: 08/06/2020 Bilateral Diagnostic Mammogram, [facility]. 08/07/2021 Bilateral Screening Mammogram, [facility]. 08/26/2022 Bilateral MG screening mammo w CAD, [facility]. Tissue Density: There are scattered fibroglandular densities. Findings: Analyzed By CAD. Left breast biopsy clip. There is no suspicious group of microcalcifications or new suspicious mass. Benign-appearing calcifications bilaterally. Overall Assessment: Benign, BI-RAD 2 Management: Screening Mammogram of both breasts in [address] [facility] will attempt to contact patient to return for supplemental views and ultrasound if indicated. Patient should continue monthly self-breast exams. A clinical breast exam by your physician is recommended on an annual basis. This exam should not preclude additional follow-up of suspicious palpable abnormalities. Note on Adrienne scores and lifetime risk: 1. A Adrienne score greater than 3% is considered moderate risk. If this is the case, consider specialist referral to assess eligibility for a risk reducing agent. 2. If overall lifetime risk for the development of breast cancer is 20% or higher, the patient may qualify for future screening with alternating mammogram and breast MRI. Electronically signed and approved by: Vivek Carvalho DO
== END | disposition home or self-care (01) ==
LOC: RADMAMWWP 11:27
PROVIDERS: ATTEND Family Medicine
DX: Z12.31 Encounter for screening mammogram for malignant neoplasm of breast (principal); R92.323 Mammographic fibroglandular density, bilateral breasts; Z78.0 Asymptomatic menopausal state; Z80.3 Family history of malignant neoplasm of breast
CPT/HCPCS: 77063; 77067